=== PATIENT | male | born 1985 | race Caucasian/White ===

== ENCOUNTER 2021-03-30 07:28 | Emergency (ER) | payer OTHER ==
[2021-03-30 08:24] LABS: BILIRUBIN NEGATIVE (NEGATIVE); BLOOD NEGATIVE Ery/uL (NEGATIVE); CLARITY CLEAR (CLEAR); COLOR YELLOW (YELLOW); GLUCOSE (U) NORMAL (NORMAL); LEUKOCYTES NEGATIVE Leu/uL (NEGATIVE); NITRITE NEGATIVE (NEGATIVE); PROTEIN NEGATIVE (NEGATIVE); SPECIFIC GRAVITY <=1.005 (1.001-1.030); UROBILINOGEN 0.2 mg/dL (0.2-1.0)
[2021-03-30 08:28] LABS: AMPHETAMINES NEGATIVE (NEGATIVE); BARBITURATES NEGATIVE (NEGATIVE); ECSTASY (MDMA) NEGATIVE (NEGATIVE); MARIJUANA (THC) NEGATIVE (NEGATIVE); METHADONE NEGATIVE (NEGATIVE); OPIATES NEGATIVE (NEGATIVE); OXYCODONE NEGATIVE (NEGATIVE)
[2021-03-30 08:35] LABS: BASOPHIL 0.4 % (0-2); EOSINOPHIL 0 % (0-5); HCT 44.1 % (42.0-52.0); LYMPHOCYTE 23.7 % (15-48); MCH 30.9 pg (25.0-31.0); MCV 90.7 fL (78.0-100.0); MONOCYTE 9.2 % (0-12); NEUTROPHIL 66.3 % (41-80); NRBC 0; PLT 156 K/uL (150-400); RBC 4.86 M/uL (4.70-6.00); RDW 12.9 % (11.5-14.0); WBC 7.8 K/uL (4.0-10.5)
[2021-03-30 09:03] LABS: ACETAMINOPHEN (TYLENOL) < 2.0 ug/mL (10.0-30.0); ALBUMIN 4.1 g/dL (3.4-5.0); ALKALINE PHOSHATASE 64 U/L (46-116); ALT 37 U/L (16-63); AST 26 U/L (15-37); BILIRUBIN - TOTAL 0.3 mg/dL (0.2-1.0); BUN 8 mg/dL (7-18); BUN/CREAT RATIO (CALC) 8.4 RATIO; CHLORIDE 100 mmol/L (98-107); CO2 (BICARBONATE) 22 mmol/L (21-32); CREATININE 0.95 mg/dL (0.67-1.17); GLOBULIN (CALCULATION) 3.2 g/dL; GLUCOSE 122 mg/dL (74-106); POTASSIUM 3.5 mmol/L (3.5-5.1); TOTAL PROTEIN 7.3 g/dL (6.4-8.2)
== END 2021-03-30 16:01 ==
LOC: FER 07:28
PROVIDERS: Emergency Medicine
DX: R45.850 Homicidal ideations (principal); U07.1 COVID-19; F20.9 Schizophrenia, unspecified; F19.10 Other psychoactive substance abuse, uncomplicated; F17.210 Nicotine dependence, cigarettes, uncomplicated; Z88.8 Allergy status to other drugs, medicaments and biological substances
CPT/HCPCS: 36415; 80053; 80305; 81003; 85025; 99285; G0480; U0002